=== PATIENT | male | born 1985 | race African-American/Black ===

== ENCOUNTER 2019-03-12 16:33 | Emergency (ER) | payer OTHER ==
[~2019-03-12] VITALS: Ht 170.2 cm; Wt 130.2 kg
[~2019-03-12 16:33] MED LIST: CELEXA 20 MG TA20 MG PO; CELEXA40 MG PO; LISINOPRIL5 MG PO
[2019-03-12 17:37] LABS: EOSINOPHILS 0.8 % (0.0-3.0); HEMATOCRIT 49.7 % (42.0-52.0); HEMOGLOBIN 17.2 gm/dL (14.0-18.0); LYMPHOCYTES 33.9 % (24.0-44.0); MCH 31.3 pg (26.0-34.0); MCHC 34.6 g/dL (28.0-37.0); MCV 90.4 fL (80.0-100.0); MONOCYTES 6.6 % (1.0-8.0); POLYS 57.7 % (36.0-66.0); RDW 15.3 % (10.5-14.5); WBC 8.7 thou/uL (4.0-11.0)
[2019-03-12 17:44] LABS: CALCIUM 9.2 mg/dL (8.5-10.1); CREATININE 1.7 mg/dL (0.7-1.3)
[2019-03-12 17:51] LABS: ALBUMIN 3.7 g/dL (3.4-5.0); TOTAL BILIRUBIN 0.3 mg/dL (<0.1-1.0); TOTAL PROTEIN 7.8 g/dL (6.4-8.2)
[2019-03-12 18:17] LABS: PLATELET COUNT 204 thou/uL (150-400)
[2019-03-12] MEDS ORDERED: CLONIDINE0.1 PO (18:32)
[2019-03-12] MEDS ORDERED: TOPROL XL25 MG PO (18:32)
[2019-03-12 19:05] VITALS: BP 158/71
--- NOTE | 2019-03-13 11:45 | EKG ---
[place] [address] [facility] [place] [address] ELECTROCARDIOGRAM REPORT Name: LOGANCALIXTO L [facility] [id number] Admission: 03/12/19 Attend Phys: Discharge: 03/12/19 Date of : 83 Report #: [id number] THIS REPORT FOR: //name// 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
== END 2019-03-12 19:05 | disposition home or self-care (01) ==
LOC: ER 16:33
PROVIDERS: Physician Assistant
DX: I10 Essential (primary) hypertension (principal); N28.9 Disorder of kidney and ureter, unspecified; F17.210 Nicotine dependence, cigarettes, uncomplicated; F32.9 Major depressive disorder, single episode, unspecified

== ENCOUNTER 2019-07-07 13:24 | Inpatient (IN) | payer OTHER ==
[~2019-07-07] VITALS: Ht 170.2 cm; Wt 115.1 kg
[~2019-07-07 13:24] MED LIST changes: +CLONIDINE0.1 PO; +TOPROL XL25 MG PO
[2019-07-07 13:25] VITALS: BP 170/121
[2019-07-07 15:49] LABS: ABSOLUTE NEUTROPHILS 10.6 thou/uL (1.4-8.2); BASOPHILS 1.1 % (0.0-2.0); EOSINOPHILS 0.1 % (0.0-3.0); HEMOGLOBIN 16.9 gm/dL (14.0-18.0); LYMPHOCYTES 22.5 % (24.0-44.0); MCH 30.3 pg (26.0-34.0); MCHC 33.1 g/dL (28.0-37.0); MCV 91.7 fL (80.0-100.0); MONOCYTES 8.1 % (1.0-8.0); PLATELET COUNT 241 thou/uL (150-400); POLYS 68.2 % (36.0-66.0); RBC 5.57 mil/uL (4.50-6.00); RDW 14.4 % (10.5-14.5); WBC 15.5 thou/uL (4.0-11.0)
[2019-07-07 16:03] LABS: CALCIUM 10.2 mg/dL (8.5-10.1); CREATININE 1.8 mg/dL (0.7-1.3); POTASSIUM 3.9 mmol/L (3.5-5.1)
[2019-07-07 16:09] LABS: ALBUMIN 4.5 g/dL (3.4-5.0); TOTAL BILIRUBIN 0.9 mg/dL (<0.1-1.0)
[2019-07-07 18:10] VITALS: BP 183/112
[2019-07-07 18:35] LABS: URINE BILIRUBIN NEGATIVE (Negative); URINE BLOOD 1+ (Negative); URINE CLARITY CLEAR; URINE COLOR YELLOW; URINE GLUCOSE-RANDOM* NEGATIVE (Negative); URINE KETONES 1+ (Negative); URINE LEUKOCYTES-REFLEX NEGATIVE (Negative); URINE NITRITE-REFLEX NEGATIVE (Negative); URINE PROTEIN (DIPSTICK) 1+ (Negative); URINE UROBILINOGEN 0.2 E.U./dl (0.2-1.0)
[2019-07-07 18:48] LABS: BACTERIA-REFLEX None Seen /HPF (None Seen); CASTS None Seen /LPF (None Seen); CRYSTALS None Seen /LPF (None Seen); SQUAMOUS 0-3 Few /LPF (0-3); URINE RBC None Seen /HPF (0-2); URINE WBC-REFLEX 0-5 Rare /HPF (0-5)
[2019-07-07 19:42] VITALS: BP 152/91
[2019-07-07 20:10] VITALS: BP 151/78
[2019-07-07 23:59] VITALS: BP 136/90
[2019-07-08 04:02] VITALS: BP 150/89
--- NOTE | 2019-07-08 05:13 | NUR ---
PT WAS AN ER ADMIT. PT IS ADMITTED WITH HTN, AND ELEVATED TROP. PT IS ALERT AND ORIENTED. FAMILY AT BEDSIDE. NO SIGN OF DISTRESS NOTED IN PT. ADMISSION ASSESSMENT AND EDUCATION COMPLETED. BLOOD PRESSURE STABLE THROUGHOUT THE NIGHT. DENIES ANY PAIN. VSS. PT IS STABLE ON THE MONITOR. CONTINUE TO MONITOR PT. DENIES ANY FURTHER NEEDS AT THIS TIME.
[2019-07-08 08:00] VITALS: BP 105/64; BP 153/97
--- NOTE | 2019-07-08 08:58 | 2DMMODE ---
[facility] [address] [place] [address] 2 D/M-MODE ECHOCARDIOGRAM Name: LOGANCALIXTO L Room #: 214-P ADM IN M.R.#: [id number] Admission: 07/07/19 Attend Phys: Diogo Mace MD Discharge: Date of : 83 Report #: [id number] THIS REPORT FOR: //name// APPROVED REPORT Study performed: 07/08/2019 08:21:20 EXAM: Comprehensive 2D, Doppler, and color-flow Echocardiogram Patient Location: Echo lab Room #: 214 Status: routine BSA: 2.24 HR: 60 bpm BP: 150/89 mmHg Rhythm: NSR Other Information Study Quality: Good Indications Hypertension, elevated troponin. Hx: HTN. 2D Dimensions RVDd: 37.52 mm IVSd: 15.00 (7-11mm) LVOT Diam: 23.45 (18-24mm) LVDd: 44.82 mm PWd: 13.00 (7-11mm) Ascending Ao: 36.61 (22-36mm) LVDs: 28.52 (25-40mm) Aortic Root: 39.46 mm Volumes Left Atrial Volume (Systole) Single Plane 4CH: 45.18 mL Single Plane 2CH: 50.34 mL LA ESV Index: 24.00 mL/m2 Aortic Valve AoV Peak Doc.: 1.08 m/s AO Peak Gr.: 4.64 mmHg LVOT Max P.51 mmHg LVOT Max V: 1.06 m/s CARL Vmax: 4.26 cm2 Mitral Valve E/A Ratio: 0.9 MV Decel. Time: 305.40 ms [facility] [place] [place] [address] 2 D/M-MODE ECHOCARDIOGRAM Name: CALIXTO FORD Room #: 214-P [facility]#: [id number] Admission: 07/07/19 Attend Phys: Diogo Mace MD Discharge: Date of : 83 Report #: [id number] E Max Doc.: 0.51 m/s MV A Doc.: 0.59 m/s MV PHT: 88.57 ms IVRT: 124.57 ms Pulmonary Valve PV Peak Doc.: 1.01 m/s PV Peak Gr.: 4.06 mmHg Pulmonary Vein P Vein S: 0.48 m/s P Vein A: 0.24 m/s P Vein D: 0.49 m/s P Vein A Dur.: 106.1 msec P Vein S/D Ratio: 0.98 Tricuspid Valve TR Peak Doc.: 1.80 m/s RAP Estimate: 5.00 mmHg TR Peak Gr.: 13.00 mmHg PA Pressure: 18.00 mmHg Left Ventricle The left ventricle is normal size. There is normal LV segmental wall motion. Mild concentric left ventricular hypertrophy. Left ventricular systolic function is normal. LVEF is 60-65%. Mild diastolic dysfunction is present (impaired relaxation pattern). Right Ventricle The right ventricle is normal size. The right ventricular systolic function is normal. Atria The left atrium size is normal. The right atrium size is normal. Aortic Valve The aortic valve is normal in structure. No aortic regurgitation is present. There is no aortic valvular stenosis. Mitral Valve The mitral valve is normal in structure. No mitral regurgitation. Tricuspid Valve The tricuspid valve is normal in structure. Trace tricuspid regurgitation. Estimated PAP is 18mmHg. Pulmonic Valve [facility] [place] [address] [place] [address] 2 D/M-MODE ECHOCARDIOGRAM Name: CALIXTO FORD Unruly Room #: 214-P [facility] IN M.R.#: [id number] Admission: 07/07/19 Attend Phys: Diogo Mace MD Discharge: Date of : 83 Report #: [id number] The pulmonary valve is normal in structure. Mild pulmonic regurgitation. Great Vessels The aortic root is normal in size. The ascending aorta is normal in size. IVC is normal in size and collapses >50% with inspiration. Pericardium There is no pericardial effusion. <Conclusion> Left ventricular systolic function is normal. There is normal LV segmental wall motion. LVEF is 60-65%. Mild concentric left ventricular hypertrophy. Mild diastolic dysfunction The aortic valve is normal in structure. No aortic regurgitation or stenosis. The mitral valve is normal in structure. No mitral regurgitation. Trace tricuspid regurgitation. Estimated pulmonary artery pressure of 18mmHg. There is no pericardial effusion. <ELECTRONICALLY SIGNED> By: Dipesh Gallagher MD, FACC 07/08/1958 6 6 Dipesh Gallagher MD, FACC /INF
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
--- NOTE | 2019-07-08 09:40 | EKG ---
[address] [facility] [employer] [address] [place] [address] ELECTROCARDIOGRAM REPORT Name: LOGAN,CALIXTO L Room #: 214-P ADM IN M.R.#: [id number] Admission: 07/07/19 Attend Phys: Diogo Mace MD Discharge: Date of : 83 Report #: [id number] THIS REPORT FOR: //name// [facility] ED Test Date: 2019-07-07 Test Time: 15:25:59 Pat Name: CALIXTO FORD Department: Room: 214 Gender: M Charger: BRIANNA : 1985 Requested By: Oralia Rowan Order Number: [id number] MD: Dipesh Gallagher Measurements Intervals [place] Rate: 97 P: 53 MT: 140 QRS: 40 QRSD: 83 T: -35 QT: 329 QTc: 418 Interpretive Statements Sinus rhythm LVH Early repolarization Compared to ECG 03/12/2019 17:33:40 No significant change was found Electronically Signed On 07-08-2019 9:40:31 RECONCILIATION ACCOUNTANT by Dipesh Gallagher [email or web address] <ELECTRONICALLY SIGNED> By: Dipesh Gallagher MD, [facility] 07/08/19 0940 1525 1525 Dipesh Gallagher MD, [facility] /EPI
--- NOTE | 2019-07-08 09:46 | EKG ---
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1985 Requested By: Oralia Rowan Order Number: [id number] MD: Dipesh Gallagher Measurements Intervals [place] Rate: 84 P: 53 VA: 146 QRS: 36 QRSD: 87 T: -37 QT: 371 QTc: 439 Interpretive Statements Sinus rhythm LVH ST elevation, consider early repolarization Compared to ECG 03/12/2019 17:33:40 No significant change was found Electronically Signed On 07-08-2019 9:45:50 SENIOR PROJECT COORDINATOR by Dipesh Gallagher [email or web address] <ELECTRONICALLY SIGNED> By: Dipesh Gallagher MD, [facility] 07/08/19 0945 1656 1656 Dipesh Gallagher MD, [facility] /EPI
--- NOTE | 2019-07-08 09:49 | EKG ---
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: CLIFTON : 1985 Requested By: Oralia Rowan Order Number: [id number] MD: Dipesh Gallagher Measurements Intervals [place] Rate: 82 P: 16 HI: 134 QRS: 24 QRSD: 85 T: -56 QT: 389 QTc: 455 Interpretive Statements Sinus rhythm LVH by voltage Abnormal T, diffuse leads ST elevation, early repolarization Compared to ECG 03/12/2019 17:33:40 no significant change was found Electronically Signed On 07-08-2019 9:49:07 PHYSICAL THERAPIST AIDE by Dipesh Gallagher [email or web address] <ELECTRONICALLY SIGNED> By: Dipesh Gallagher MD, [facility] 07/08/19 0949 1856 185 Dipesh Gallagher MD, [facility] /EPI
--- NOTE | 2019-07-08 09:55 | EKG ---
[address] [place] [address] ELECTROCARDIOGRAM REPORT Name: CALIXTO FORD Unruly Room #: 214-P ADM IN M.R.#: [id number] Admission: 07/07/19 Attend Phys: Diogo Mace MD Discharge: Date of : 83 Report #: [id number] THIS REPORT FOR: //name// 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: MIK : 1985 Requested By: Dipesh Gallagher Order Number: [id number] MD: Dipesh Gallagher Measurements Intervals [place] Rate: 72 P: 31 DC: 137 QRS: 21 QRSD: 88 T: -14 QT: 407 QTc: 446 Interpretive Statements Sinus rhythm LVH Borderline T abnormalities, inferior leads ST elevation, consider early repolarization Compared to ECG 03/12/2019 17:33:40 T wave abnormality is less pronounced Electronically Signed On 07-08-2019 9:55:21 MODELING AGENT by Dipesh Gallagher [email or web address] <ELECTRONICALLY SIGNED> By: Dipesh Gallagher MD, [facility] 07/08/19 0955 0713 2 Dipesh Gallagher MD, [facility] /EPI
[2019-07-08 11:28] VITALS: BP 153/97
[2019-07-08] MEDS ORDERED: BENICAR40 MG PO (12:10)
[2019-07-08] MEDS ORDERED: METOPROLOL SUCC50 MG PO (12:10)
[2019-07-08] MEDS ORDERED: CATAPRES0.1 MG PO (12:10)
[2019-07-08] MEDS ORDERED: HYDROCHLOROTH12.5 M1 PO (12:10)
[2019-07-08] MEDS ORDERED: ACETAMINOPHEN325 M1 PO (12:10)
[2019-07-08 12:33] VITALS: BP 153/97
--- NOTE | 2019-07-08 12:35 | NUR ---
Pt dcing home today. Community Health Education Coordinator visited with the pt and his fiance at bedside. 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 Pt's abelinoance works outside the home and is knowledgeable about using [employer] for pricing and discounts on scripts. The pt has utilized the [facility] [address] for several years and sees an CIGAR PACKER there. Compliance with medications and f/u visits discussed. Pt states his understanding and plans to see his CIGAR PACKER soon. Abelinoance to pickup scripts and has gotten a coupon and pricing for 90 day supply. No other cm interventions indicated at this time. Pt is indep with gait and adl's and has good support.
--- NOTE | 2019-07-08 12:49 | NUR ---
PT CARE ASSUMED APPROX 0700. ASSESSMENT CHARTED. DENIES PAIN AND SOA. VSS. UP WITH STEADY GAIT. PT ORDERED TO DISCHARGED AT THIS TIME. DISCHARGE EDUCATION DONE WITH PT AND PT'S SPOUSE. BOTH DENY QUESTIONS AND CONCERNS REGARDING POST HOSPITAL CARE AND NEW MEDS. IV OUT, TELE BOX OFF. PT INSISTENT ON AMBULATING TO CAR. LEAVING UNIT AT THIS TIME.
== END 2019-07-08 13:00 | disposition home or self-care (01) | DRG 281 ==
LOC: ER 13:24 → 2N 17:57 → EROBS 17:57 → 2N 19:50
PROVIDERS: Internal Medicine; Nurse Practitioner Family; ADMIT Internal Medicine
DX: I21.4 Non-ST elevation (NSTEMI) myocardial infarction (principal); I16.1 Hypertensive emergency; H53.8 Other visual disturbances; F32.9 Major depressive disorder, single episode, unspecified; F43.10 Post-traumatic stress disorder, unspecified; F17.210 Nicotine dependence, cigarettes, uncomplicated; R51 Headache; R22.0 Localized swelling, mass and lump, head; I12.9 Hypertensive chronic kidney disease with stage 1 through stage 4 chronic kidney disease, or unspecified chronic kidney disease; N18.9 Chronic kidney disease, unspecified; F41.9 Anxiety disorder, unspecified; E66.9 Obesity, unspecified; Z82.49 Family history of ischemic heart disease and other diseases of the circulatory system; Z68.39 Body mass index [BMI] 39.0-39.9, adult; Z91.14 Patient's other noncompliance with medication regimen; Z79.899 Other long term (current) drug therapy; Z79.891 Long term (current) use of opiate analgesic
CPT/HCPCS: 10081

== ENCOUNTER 2019-09-29 22:57 | Emergency (ER) | payer OTHER ==
[~2019-09-29] VITALS: Ht 170.2 cm; Wt 131.5 kg
[~2019-09-29 22:57] MED LIST changes: +ACETAMINOPHEN325 M1 PO; +BENICAR40 MG PO; +CATAPRES0.1 MG PO; +HYDROCHLOROTH12.5 M1 PO; +METOPROLOL SUCC50 MG PO
[2019-09-29 23:49] LABS: ABSOLUTE NEUTROPHILS 3.9 thou/uL (1.4-8.2); BASOPHILS 1.3 % (0.0-2.0); EOSINOPHILS 1.7 % (0.0-3.0); HEMOGLOBIN 16.1 gm/dL (14.0-18.0); MCH 30.8 pg (26.0-34.0); MCHC 33.5 g/dL (28.0-37.0); MCV 91.9 fL (80.0-100.0); MONOCYTES 7.3 % (1.0-8.0); PLATELET COUNT 223 thou/uL (150-400); POLYS 46.7 % (36.0-66.0); RBC 5.23 mil/uL (4.50-6.00); RDW 14.4 % (10.5-14.5); WBC 8.3 thou/uL (4.0-11.0)
[2019-09-30 00:22] LABS: ANION GAP 13 mmol/L (7-16); BUN 16 mg/dL (7-18); CALCIUM 9.3 mg/dL (8.5-10.1); CHLORIDE 102 mmol/L (98-107); CO2 26 mmol/L (21-32); CREATININE 1.4 mg/dL (0.7-1.3); GLUCOSE 103 mg/dL (74-106); POTASSIUM 3.9 mmol/L (3.5-5.1); SODIUM 141 mmol/L (136-145)
[2019-09-30 00:30] LABS: TROPONIN-I <0.06 ng/mL (<0.06)
[2019-09-30] MEDS ORDERED: FLEXERIL PO (02:02)
[2019-09-30] MEDS ORDERED: NORCO 5-325 TA1 EAC1 PO (02:02)
[2019-09-30 02:36] VITALS: BP 192/136
[2019-09-30 08:44] LABS: URINE BILIRUBIN NEGATIVE (Negative); URINE BLOOD NEGATIVE (Negative); URINE COLOR YELLOW; URINE GLUCOSE-RANDOM* NEGATIVE (Negative); URINE KETONES NEGATIVE (Negative); URINE LEUKOCYTES-REFLEX NEGATIVE (Negative); URINE NITRITE-REFLEX NEGATIVE (Negative); URINE PROTEIN (DIPSTICK) 1+ (Negative); URINE SPECIFIC GRAVITY >= 1.030 (1.005-1.035)
[2019-09-30 08:46] LABS: URINE CLARITY CLOUDY
[2019-09-30 08:50] LABS: BACTERIA-REFLEX None Seen /HPF (None Seen); CASTS None Seen /LPF (None Seen); CRYSTALS None Seen /LPF (None Seen); SQUAMOUS None Seen /LPF (0-3); URINE RBC None Seen /HPF (0-2); URINE WBC-REFLEX None Seen /HPF (0-5)
[2019-09-30 08:51] LABS: HYALINE CASTS 0-3 Few /LPF (None Seen)
--- NOTE | 2019-09-30 09:46 | EKG ---
[facility] [address] [address] ELECTROCARDIOGRAM REPORT Name: CALIXTO FORD Room #: [facility]#: [id number] Admission: 09/29/19 Attend Phys: Discharge: 09/30/19 Date of : 83 Report #: [id number] THIS REPORT FOR: cc: JERO GOLD APRN Physician not on staff Dipesh Gallagher MD [facility] ~ THIS REPORT FOR: //name// [facility] ED Test Date: 2019-09-29 Test Time: 23:14:57 Pat Name: CALIXTO FORD Department: Room: Gender: Student Accounts Coordinator: HILARY : 1985 Requested By: Brandi Campos Order Number: [id number] MD: Dipesh Gallagher Measurements Intervals [place] Rate: 82 P: 41 CO: 150 QRS: 33 QRSD: 82 T: -71 QT: 360 QTc: 421 Interpretive Statements Sinus rhythm Left ventricular hypertrophy with repolarization abnormality No previous ECGs available for comparison Electronically Signed On 09-30-2019 9:45:16 FURNITURE SANDER by Dipesh Gallagher [email or web address] <ELECTRONICALLY SIGNED> By: Dipesh Gallagher MD, [facility] 09/30/19 0945 13 13 Dipesh Gallagher MD, [facility] /EPI
== END 2019-09-30 02:30 | disposition home or self-care (01) ==
LOC: ER 22:57
PROVIDERS: Emergency Medicine Emergency Medical Services
DX: I10 Essential (primary) hypertension (principal); R10.31 Right lower quadrant pain; F17.210 Nicotine dependence, cigarettes, uncomplicated

== ENCOUNTER 2020-06-18 02:17 | Emergency (ER) | payer OTHER ==
[~2020-06-18] VITALS: Ht 170.2 cm; Wt 129.7 kg
[~2020-06-18 02:17] MED LIST changes: +FLEXERIL PO; +NORCO 5-325 TA1 EAC1 PO
[2020-06-18] MEDS ORDERED: NORVASC 2.5 MG2.5 M1 PO (02:28)
[2020-06-18 03:21] LABS: ABSOLUTE NEUTROPHILS 8.8 thou/uL (1.4-8.2); BASOPHILS 0.9 % (0.0-2.0); HEMATOCRIT 47.8 % (42.0-52.0); HEMOGLOBIN 16.1 gm/dL (14.0-18.0); LYMPHOCYTES 22.4 % (24.0-44.0); MCH 31.2 pg (26.0-34.0); MCHC 33.7 g/dL (28.0-37.0); MCV 92.7 fL (80.0-100.0); MONOCYTES 8.8 % (1.0-8.0); PLATELET COUNT 213 thou/uL (150-400); POLYS 66.9 % (36.0-66.0); RBC 5.16 mil/uL (4.50-6.00); RDW 14.4 % (10.5-14.5); WBC 13.2 thou/uL (4.0-11.0)
[2020-06-18 03:33] LABS: ANION GAP 11 mmol/L (7-16); BUN 15 mg/dL (7-18); CALCIUM 9.4 mg/dL (8.5-10.1); CHLORIDE 100 mmol/L (98-107); CO2 27 mmol/L (21-32); CREATININE 1.4 mg/dL (0.7-1.3); GLUCOSE 93 mg/dL (74-106); POTASSIUM 3.6 mmol/L (3.5-5.1); SODIUM 138 mmol/L (136-145)
[2020-06-18 03:41] LABS: TROPONIN-I <0.06 ng/mL (<0.06)
[2020-06-18 04:09] LABS: LARGE PLATELETS OCCASIONAL
[2020-06-18] MEDS ORDERED: MOBIC15 MG PO (04:26)
[2020-06-18] MEDS ORDERED: CATAPRES0.1 MG PO (04:26)
[2020-06-18 05:46] VITALS: BP 196/138
--- NOTE | 2020-06-18 08:31 | EKG ---
[facility] [place] [address] [address] [place] [address] ELECTROCARDIOGRAM REPORT Name: CALIXTO FORD Room #: [facility]#: [id number] Admission: 06/18/20 Attend Phys: Discharge: 06/18/20 Date of : 83 Report #: [id number] THIS REPORT FOR: cc: JERO GOLD APRN [facility] - Family physician unknown Dipesh Gallagher MD [facility] THIS REPORT FOR: //name// [facility] ED Test Date: 2020-06-18 Test Time: 03:13:43 Pat Name: CALIXTO FORD Department: Room: Gender: Station Cashier[facility] : 1985 Requested By: Dilma Walton Order Number: [id number] MD: Dipesh Gallagher Measurements Intervals [place] Rate: 80 P: 30 FL: 141 QRS: 19 QRSD: 88 T: -23 QT: 379 QTc: 438 Interpretive Statements Sinus rhythm Left ventricular hypertrophy Nonspecific T wave abnormality Compared to ECG 09/29/2019 23:14:57 T wave abnormality is less pronounced Electronically Signed On 06-18-2020 8:31:01 BAKERY ASSOCIATE by Dipesh Gallagher [email or web address] <ELECTRONICALLY SIGNED> By: Dipesh Gallagher MD, FACC 06/18/20 0831 0313 Dipesh Gallagher MD, [facility] /EPI
== END 2020-06-18 05:50 | disposition home or self-care (01) ==
LOC: ER 02:17
PROVIDERS: Emergency Medicine
DX: I10 Essential (primary) hypertension (principal); J02.9 Acute pharyngitis, unspecified; F32.9 Major depressive disorder, single episode, unspecified; I25.2 Old myocardial infarction; F17.210 Nicotine dependence, cigarettes, uncomplicated; Z79.899 Other long term (current) drug therapy

== ENCOUNTER 2020-12-24 22:34 | Emergency (ER) | payer OTHER ==
[~2020-12-24] VITALS: Ht 170.2 cm; Wt 90.7 kg
[~2020-12-24 22:34] MED LIST changes: +MOBIC15 MG PO; +NORVASC 2.5 MG2.5 M1 PO
[2020-12-24 23:01] LABS: URINE BILIRUBIN NEGATIVE (Negative); URINE BLOOD NEGATIVE (Negative); URINE CLARITY CLEAR; URINE COLOR YELLOW; URINE GLUCOSE-RANDOM* NEGATIVE (Negative); URINE KETONES NEGATIVE (Negative); URINE LEUKOCYTES-REFLEX NEGATIVE (Negative); URINE NITRITE-REFLEX NEGATIVE (Negative); URINE PROTEIN (DIPSTICK) NEGATIVE (Negative); URINE UROBILINOGEN 0.2 E.U./dl (0.2-1.0)
[2020-12-24 23:04] LABS: BASOPHILS 1.3 % (0.0-2.0); HEMATOCRIT 41.9 % (42.0-52.0); LYMPHOCYTES 35.8 % (24.0-44.0); MCH 31.8 pg (26.0-34.0); MCHC 33.4 g/dL (28.0-37.0); MONOCYTES 8.3 % (1.0-8.0); PLATELET COUNT 183 thou/uL (150-400); POLYS 52.6 % (36.0-66.0); RBC 4.41 mil/uL (4.50-6.00); RDW 14.8 % (10.5-14.5); WBC 7.7 thou/uL (4.0-11.0)
[2020-12-24 23:18] LABS: CALCIUM 8.7 mg/dL (8.5-10.1); CREATININE 1.5 mg/dL (0.7-1.3); POTASSIUM 3.8 mmol/L (3.5-5.1)
[2020-12-24 23:24] LABS: ALBUMIN 3.4 g/dL (3.4-5.0); TOTAL BILIRUBIN 0.2 mg/dL (0.2-1.0); TOTAL PROTEIN 6.9 g/dL (6.4-8.2)
[2020-12-24] MEDS ORDERED: FLEXERIL PO (23:37)
[2020-12-24] MEDS ORDERED: CLONIDINE HCL0.1 MG PO (23:47)
[2020-12-24] MEDS ORDERED: LOPRESSOR50 MG PO (23:47)
[2020-12-24 23:48] VITALS: BP 177/117
== END 2020-12-25 00:07 | disposition home or self-care (01) ==
LOC: ER 22:34
PROVIDERS: Emergency Medicine Emergency Medical Services
DX: M54.9 Dorsalgia, unspecified (principal); R10.9 Unspecified abdominal pain; R30.0 Dysuria; R06.02 Shortness of breath; R09.81 Nasal congestion; I10 Essential (primary) hypertension; F32.9 Major depressive disorder, single episode, unspecified; F17.210 Nicotine dependence, cigarettes, uncomplicated; Z79.899 Other long term (current) drug therapy

== ENCOUNTER 2021-02-09 02:11 | Emergency (ER) | payer OTHER ==
[~2021-02-09] VITALS: Ht 170.2 cm; Wt 131.5 kg
[~2021-02-09 02:11] MED LIST changes: +CLONIDINE HCL0.1 MG PO; +LOPRESSOR50 MG PO
[2021-02-09] MEDS ORDERED: NEURONTIN300 MG PO (02:24)
[2021-02-09 02:49] LABS: HEMATOCRIT 45.5 % (42.0-52.0); HEMOGLOBIN 15.4 gm/dL (14.0-18.0); MCH 32.4 pg (26.0-34.0); MCHC 33.9 g/dL (28.0-37.0); MCV 95.7 fL (80.0-100.0); PLATELET COUNT 213 thou/uL (150-400); RBC 4.75 mil/uL (4.50-6.00); RDW 14.2 % (10.5-14.5); WBC 9.5 thou/uL (4.0-11.0)
[2021-02-09 02:53] LABS: ANION GAP 12 mmol/L (7-16); BUN 28 mg/dL (7-18); CALCIUM 8.3 mg/dL (8.5-10.1); CHLORIDE 104 mmol/L (98-107); CO2 26 mmol/L (21-32); CREATININE 1.5 mg/dL (0.7-1.3); GLUCOSE 130 mg/dL (74-106); POTASSIUM 3.6 mmol/L (3.5-5.1); SODIUM 142 mmol/L (136-145)
[2021-02-09 03:03] LABS: TROPONIN-I <0.06 ng/mL (<0.06)
[2021-02-09 03:17] LABS: ABSOLUTE NEUTROPHILS 5.7 thou/uL (1.4-8.2); ATYPICAL LYMPHS 2 %
[2021-02-09 03:18] LABS: LARGE PLATELETS FEW
[2021-02-09 06:06] VITALS: BP 145/83
--- NOTE | 2021-02-09 11:03 | EKG ---
[place] [address] [place] [address] ELECTROCARDIOGRAM REPORT Name: CALIXTO FORD Room #: [facility]#: [id number] Admission: 02/09/21 Attend Phys: Discharge: 02/09/21 Date of : 83 Report #: [id number] [facility] ED Test Date: 2021-02-09 Test Time: 02:16:20 Pat Name: CALIXTO FORD Department: Room: Gender: M Wet Room Supervisor: anupama : 1985 Requested By: Jose Hamilton Order Number: [id number] MD: Dale Lux Measurements Intervals [place] Rate: 74 P: 37 MS: 136 QRS: 34 QRSD: 81 T: 0 QT: 393 QTc: 436 Interpretive Statements Sinus rhythm Consider left ventricular hypertrophy ST elev, probable normal early repol pattern versus pericarditis Compared to ECG 06/18/2020 03:13:43 ST (T wave) deviation now present T-wave abnormality no longer present Electronically Signed On 02-09-2021 11:03:18 CDT by Dale Lux [email or web address] <ELECTRONICALLY SIGNED> By: Dale Lux MD 02/09/21 1103 5 5 Dale Lux MD /KO
== END 2021-02-09 06:07 | disposition home or self-care (01) ==
LOC: ER 02:11
PROVIDERS: Emergency Medicine
DX: R07.89 Other chest pain (principal); F32.9 Major depressive disorder, single episode, unspecified; I10 Essential (primary) hypertension; F17.210 Nicotine dependence, cigarettes, uncomplicated; Z79.1 Long term (current) use of non-steroidal anti-inflammatories (NSAID); Z79.899 Other long term (current) drug therapy; Z72.89 Other problems related to lifestyle

== ENCOUNTER 2021-04-06 07:17 | Emergency (ER) | payer OTHER ==
[~2021-04-06] VITALS: Ht 170.2 cm; Wt 107.5 kg
[~2021-04-06 07:17] MED LIST changes: +NEURONTIN300 MG PO
[2021-04-06 07:55] LABS: URINE BILIRUBIN NEGATIVE (Negative); URINE BLOOD TRACE (Negative); URINE CLARITY CLEAR; URINE COLOR YELLOW; URINE GLUCOSE-RANDOM* NEGATIVE (Negative); URINE KETONES TRACE (Negative); URINE LEUKOCYTES-REFLEX NEGATIVE (Negative); URINE NITRITE-REFLEX NEGATIVE (Negative); URINE PROTEIN (DIPSTICK) 1+ (Negative); URINE UROBILINOGEN 0.2 E.U./dl (0.2-1.0)
[2021-04-06 08:22] LABS: ABSOLUTE NEUTROPHILS 6.1 thou/uL (1.4-8.2); BASOPHILS 0.5 % (0.0-2.0); EOSINOPHILS 0.9 % (0.0-3.0); HEMATOCRIT 48.3 % (42.0-52.0); HEMOGLOBIN 16.1 gm/dL (14.0-18.0); LYMPHOCYTES 23.2 % (24.0-44.0); MCH 31.7 pg (26.0-34.0); MCHC 33.3 g/dL (28.0-37.0); MCV 95.4 fL (80.0-100.0); MONOCYTES 8.7 % (1.0-8.0); PLATELET COUNT 211 thou/uL (150-400); POLYS 66.7 % (36.0-66.0); RBC 5.06 mil/uL (4.50-6.00); RDW 14.7 % (10.5-14.5); WBC 9.1 thou/uL (4.0-11.0)
[2021-04-06 08:24] LABS: ANION GAP 10 mmol/L (7-16); BUN 20 mg/dL (7-18); CALCIUM 9.3 mg/dL (8.5-10.1); CHLORIDE 103 mmol/L (98-107); CO2 25 mmol/L (21-32); CREATININE 1.4 mg/dL (0.7-1.3); GLUCOSE 105 mg/dL (74-106); POTASSIUM 3.9 mmol/L (3.5-5.1); SODIUM 138 mmol/L (136-145)
[2021-04-06 08:26] LABS: CASTS None Seen /LPF (None Seen); SQUAMOUS None Seen /LPF (0-3); URINE RBC 1-2 Rare /HPF (NONE SEEN)
[2021-04-06 08:27] LABS: BACTERIA-REFLEX 1-9 Few /HPF (None Seen); CRYSTALS None Seen /LPF (None Seen); URINE WBC-REFLEX 0-5 Rare /HPF (0-5)
[2021-04-06 08:30] LABS: ALBUMIN 4.1 g/dL (3.4-5.0); DIRECT BILIRUBIN < 0.1 mg/dL (<0.1-0.2); LIPASE 266 U/L (73-393); SGOT 30 U/L (15-37); SGPT 28 U/L (16-63); TOTAL BILIRUBIN 0.3 mg/dL (0.2-1.0); TOTAL PROTEIN 8.1 g/dL (6.4-8.2)
[2021-04-06] MEDS ORDERED: CARAFATE1 GM PO (09:57)
[2021-04-06 10:15] VITALS: BP 202/122
== END 2021-04-06 10:18 | disposition home or self-care (01) ==
LOC: ER 07:17
PROVIDERS: Emergency Medicine
DX: I10 Essential (primary) hypertension (principal); K29.70 Gastritis, unspecified, without bleeding; F32.9 Major depressive disorder, single episode, unspecified; F17.210 Nicotine dependence, cigarettes, uncomplicated